=== PATIENT | female | born 1945 | race Hispanic/Latino ===

== ENCOUNTER 2017-04-12 08:27 | Outpatient (CLI) | payer MEDICARE ==
[2017-04-12 09:31] LABS: Blood Urea Nitrogen 12 mg/dL (7-17)
[2017-04-12] MEDS ORDERED: NACL ONE (09:41)
--- NOTE | 2017-04-12 10:48 | Cat Scan Report ---
CTA CHEST: INDICATION: Pulmonary embolism. COMPARISON: None similar at this institution. FINDINGS: Chest CTA performed following intravenous administration of 100 cc of Omnipaque 350. Rotational MIP's also obtained. Normal heart size. No effusions. No aortic aneurysm or dissection. No size significant adenopathy. Normal airway. Grossly unremarkable thyroid. Clear lungs. Approximate 8 cm hiatal hernia with some surrounding herniated fat and partly intrathoracic stomach. Patent main, right and left pulmonary arteries. However, small nonocclusive saddle embolus at the right pulmonary artery bifurcation noted extending into the right middle and multiple right lower lobar and segmental/subsegmental branches as on axial images 100-150, amongst others. Overall lesser clot burden on the left, though nonocclusive filling defects noted within the lingular and left lower lobe segmental/subsegmental branches as on axial images 108-168, amongst others. Images through included upper abdomen demonstrate cholecystectomy clips. Multilevel mid to lower thoracic spine degenerative changes. CONCLUSION: 1. Bilateral pulmonary embolism noted, as described. 2. Other findings, including hiatal hernia and cholecystectomy, amongst others, as above. I phoned the above results to Dr. Sheridan, 10:30 AM, 04/12/2017. Thank you for the opportunity to participate in this patient's care.
== END 2017-04-12 08:28 | disposition home or self-care (01) ==
LOC: CT 08:27
PROVIDERS: ATTEND Surgery Vascular Surgery
DX: I26.92 Saddle embolus of pulmonary artery without acute cor pulmonale (principal); K44.9 Diaphragmatic hernia without obstruction or gangrene; M47.894 Other spondylosis, thoracic region; Z90.49 Acquired absence of other specified parts of digestive tract
CPT/HCPCS: 36415; 71275; 82565; 84520; Q9967